=== PATIENT | female | born 1975 | race American Indian/Alaskan Native ===

== ENCOUNTER 2018-03-12 09:09 | Emergency (ER) | payer SELFPAY ==
--- NOTE | 2018-03-12 10:01 | Emergency Department Report ---
Chief Complaint: Abdominal Pain Stated Complaint: SERVE PAIN/LFT SIDE Time Seen by Provider: 03/12/18 09:54 - HPI History of Present Illness: 43-year-old female presents to the emergency department with complaint of left-sided pelvic pain that has been going on since last night. The patient believes that she went on to her menstrual cycle at that time she started having some heavy vaginal bleeding and the pelvic pain. She had the same thing occur about one month ago when she last had her menstrual cycle. However the patient says that she normally does not have such heavy bleeding or discomfort when she has a menstrual cycle. The patient says that there is no way that she is as she has not had any recent sexual activity and does not have sex with men and is asking for a test not to be checked. She took some ibuprofen for her discomfort with only transient and mild relief. She otherwise denies any past medical history. Patient says that she recently moved to the area and therefore does not have any [employer]. - ROS Review of Systems: Positive for pelvic pain/cramping, vaginal bleeding Negative for fever, vaginal discharge, dysuria, abdominal pain - Exam Vital Signs: Vital Signs 03/12/18 09:28 Temperature 98.5 F Pulse Rate 75 Respiratory 18 Rate Blood Pressure 139/88 [Left] O2 Sat by Pulse 98 Oximetry Physical Exam: Heart and lungs sounds are normal to auscultation. Bowel sounds are normal to auscultation. No tenderness to palpation of the abdomen. Patient does not appear in any acute distress. MSE screening note: Focused history and physical exam performed. Due to findings the following was ordered: Patient will have some basic labs and a pelvic ultrasound. ED Disposition for MSE Condition: Stable Instructions: Abdominal Pain (ED)
[2018-03-12] MEDS ORDERED: MOTRIN PO ONE (10:06)
[2018-03-12 10:47] LABS: Bilirubin,Urine NEG (Negative); Blood,Urine LG (Negative); Color,Urine Yellow (Yellow); Mucus,Urine FEW /HPF; Protein,Urine <15 mg/dL mg/dL (Negative); Urobilinogen,Urine < 2.0 mg/dL (<2.0)
[2018-03-12 10:51] LABS: HCG Qualitative,Urine Negative (Negative)
[2018-03-12 12:58] LABS: Basophils % (Auto) 0.4 % (0.0-1.8); Eosinophils # (Auto) 0.3 K/mm3 (0.0-0.4); Eosinophils % (Auto) 3.2 % (0.0-4.3); Hematocrit 36.1 % (30.3-42.9); Hemoglobin 11.4 gm/dl (10.1-14.3); Lymphocytes # (Auto) 2.1 K/mm3 (1.2-5.4); Lymphocytes % (Auto) 26.2 % (13.4-35.0); Mean Corpuscular HGB Conc 32 % (30-34); Monocytes # (Auto) 0.7 K/mm3 (0.0-0.8); Monocytes % (Auto) 8.3 % (0.0-7.3); Platelet Count 310 K/mm3 (140-440); Red Blood Count 5.23 M/mm3 (3.65-5.03); Red Cell Distribution Width 17.5 % (13.2-15.2)
[2018-03-12 13:03] LABS: Mean Corpuscular Hemoglobin 22 pg (28-32); Mean Corpuscular Volume 69 fl (79-97)
[2018-03-12 13:19] LABS: BUN/Creatinine Ratio 13; Blood Urea Nitrogen 9 mg/dL (7-17); Calcium 9.4 mg/dL (8.4-10.2); Hemolysis Index 0
--- NOTE | 2018-03-12 14:23 | Ultrasound Report ---
FINAL REPORT EXAM: US PELVIS DUPLEX DOPPLER COMP HISTORY: pelvic pain TECHNIQUE: Transabdominal and transvaginal pelvic ultrasound. Spectral Doppler analysis performed. PRIORS: None currently available. FINDINGS: Uterus: 9.5 x 5.0 x 4.8 cm. Enlarged. Anteverted. Heterogeneous. No distinct lesions. Nabothian cysts in the cervix. Endometrium: 6.5 mm. Echogenic. Within normal limits. Right ovary: 2.1 x 1.3 x 1.4 cm. 6 x 5 x 5 mm complex cyst. Ovarian flow. Left ovary: 2.3 x 1.1 x 1.9 cm. 14 x 8 x 10 mm complex cyst. Ovarian flow. No adnexal lesions. Minimal free fluid. IMPRESSION: Complex cysts in both ovaries. Findings may represent corpus luteal cyst, hemorrhagic cyst, or cystic tumor. Functional cysts favored. 6-12 week follow-up ultrasound to document resolution is recommended. Enlarged heterogeneous uterus. No distinct lesions.
[2018-03-12 14:38] VITALS: BP 156/95
--- NOTE | 2018-03-12 15:28 | Emergency Department Report ---
ED Female HPI - General Chief complaint: Abdominal Pain Stated complaint: SERVE PAIN/LFT SIDE Time Seen by Provider: 03/12/18 09:54 Source: patient Mode of arrival: Ambulatory Limitations: No Limitations - History of Present Illness Initial comments: This is a 43-year-old female nontoxic, well nourished in appearance, no acute signs of distress presents to the ED with c/o of left sided pelvic pain x1 day. Patient denies any nausea or vomiting. Patient describes pelvic pain as cramping and aching with level of 3/10. PAtient stated this started as she started to have a menstrual cycle last night. Patient stated this happened also last month. Patient stated that she took MOtrin and made her feel better. Patient denies chest pain, short of breath, fever, chills, headache, stiff neck , numbness or tingling. Patient denies any diarrhea or constipation. Patient denies any recent travels. Patient denies any allergies or PMH. MD Complaint: vaginal bleeding, pelvic pain -: days(s) (1) Radiation: non-radiating Severity: mild Severity scale (0 -10): 3 Quality: cramping Consistency: constant Improves with: none Worsens with: none Are you Now?: No Associated Symptoms: vaginal bleeding. denies: vaginal discharge, abdominal pain, nausea/vomiting, fever/chills, headaches, dysuria, hematuria, rash, seizure, shortness of breath, syncope, weakness - Related Data Previous Rx's Medication Instructions Recorded Last Taken Type Ibuprofen [Motrin] 600 mg PO Q8H PRN #30 tablet 03/12/18 Unknown Rx Allergies Allergy/AdvReac Type Severity Reaction Status Date / Time No Known Allergies Allergy Unverified 03/12/18 09:28 ED Review of Systems ROS: Stated complaint: SERVE PAIN/LFT SIDE Other details as noted in HPI Constitutional: denies: chills, fever Eyes: denies: eye pain, eye discharge, vision change ENT: denies: ear pain, throat pain Respiratory: denies: cough, shortness of breath, wheezing Cardiovascular: denies: chest pain, palpitations Endocrine: no symptoms reported Gastrointestinal: denies: abdominal pain, nausea, vomiting, diarrhea Genitourinary: abnormal menses. denies: urgency, dysuria, discharge Musculoskeletal: denies: back pain, joint swelling, arthralgia Skin: denies: rash, lesions Neurological: denies: headache, weakness, paresthesias Psychiatric: denies: anxiety, depression Hematological/Lymphatic: denies: easy bleeding, easy bruising ED Past Medical Hx - Past Medical History Previous Medical History?: No - Surgical History Past Surgical History?: No - Social History Smoking Status: Current Every Day Smoker Substance Use Type: None - Medications Home Medications: Home Medications Medication Instructions Recorded Confirmed Last Taken Type Ibuprofen [Motrin] 600 mg PO Q8H PRN #30 tablet 03/12/18 Unknown Rx ED Physical Exam - General Limitations: No Limitations General appearance: alert, in no apparent distress - Head Head exam: Present: atraumatic, normocephalic - Eye Eye exam: Present: normal appearance - ENT ENT exam: Present: mucous membranes moist - Neck Neck exam: Present: normal inspection - Respiratory Respiratory exam: Present: normal lung sounds bilaterally. Absent: respiratory distress, wheezes, rales, rhonchi, stridor, chest wall tenderness, accessory muscle use, decreased breath sounds, prolonged expiratory - Cardiovascular Cardiovascular Exam: Present: regular rate, normal rhythm, normal heart sounds. Absent: bradycardia, tachycardia, irregular rhythm, systolic murmur, diastolic murmur, rubs, gallop - GI/Abdominal GI/Abdominal exam: Present: soft, normal bowel sounds. Absent: distended, tenderness, guarding, rebound, rigid, diminished bowel sounds - Extremities Exam Extremities exam: Present: normal inspection, full ROM, normal capillary refill. Absent: tenderness - Back Exam Back exam: Present: normal inspection, full ROM. Absent: tenderness, CVA tenderness (R), CVA tenderness (L), paraspinal tenderness, vertebral tenderness - Neurological Exam Neurological exam: Present: alert, oriented X3, normal gait - Psychiatric Psychiatric exam: Present: normal affect, normal mood - Skin Skin exam: Present: warm, dry, intact, normal color. Absent: rash ED Course Vital Signs 03/12/18 03/12/18 03/12/18 09:28 10:15 11:04 Temperature 98.5 F Pulse Rate 75 Respiratory 18 16 16 Rate Blood Pressure 139/88 [Left] O2 Sat by Pulse 98 Oximetry 03/12/18 14:38 Temperature 98.7 F Pulse Rate 60 Respiratory 17 Rate Blood Pressure 156/95 [Left] O2 Sat by Pulse 100 Oximetry - Reevaluation(s) Reevaluation #1: 03/12/18 15:28 Patient is speaking in full sentences with no signs of distress noted. - Consultations Consultation #1: 03/12/18 15:29 Patient has been consulted with Dr. Jules about patient history, physical exam, and labs/US report and examined and screened patient and agrees to ED plan of care and discharge plan of care. ED Medical Decision Making - Lab Data Result diagrams: 03/12/18 12:38 03/12/18 12:38 - Medical Decision Making This is a 43-year-old female that presents with dysmenorrhea and bilateral ovarian cysts.. Patient is stable and was examined by me and Dr. Jules. There no abdominal tenderness. Negative signs of symptoms of appendicitis. Labs obtained. UA obtained. US of abdomen obtained and dictated by the radiologist. Patient is notified of the report with no questions noted by the patient. Vital signs are stable prior to discharge. Patient received Motrin in the ED which patient stated symptoms has resolved and subsided. A by mouth challenge has been obtained and patient tolerated well with no nausea vomiting. Patient was notified of strict precautions of appendicitis symptoms and to return to the ED if symptoms occurs as soon as possible. Patient was also instructed to Follow- up with a primary care doctor in 3-5 days or if symptoms worsen and continue return to emergency room as soon as possible. At time of discharge, the patient does not seem toxic or ill in appearance. No acute signs of distress noted. Patient agrees to discharge treatment plan of care. No further questions noted by the patient. Critical care attestation.: If time is entered above; I have spent that time in minutes in the direct care of this critically ill patient, excluding procedure time. ED Disposition Clinical Impression: Dysmenorrhea Ovarian cyst Qualifiers: Laterality: left Qualified Code(s): N83.202 - Unspecified ovarian cyst, left side Disposition: TO HOME OR SELFCARE Is pt being admited?: No Does the pt Need Aspirin: No Condition: Stable Instructions: Abdominal Pain (ED), Dysmenorrhea (ED), Ovarian Cyst (ED) Additional Instructions: Follow-up with a CABLE [employer] INST[employer]ER doctor in 3-5 days or if symptoms worsen and continue return to emergency room as soon as possible. Prescriptions: Ibuprofen [Motrin] 600 mg PO Q8H PRN #30 tablet PRN Reason: Pain Referrals: PRIMARY CARE, [Primary Care Provider] - 3-5 Days JOEY HERNANDEZ MD [Staff Physician] - 3-5 Days [facility] [Provider Group] - 3-5 Days Forms: Work/School Release Form(ED)
== END 2018-03-12 15:48 | disposition home or self-care (01) ==
LOC: ED 09:09
DX: N83.202 Unspecified ovarian cyst, left side (principal); N94.6 Dysmenorrhea, unspecified; F17.200 Nicotine dependence, unspecified, uncomplicated
CPT/HCPCS: 36415; 76830; 80048; 81001; 81025; 85025; 93975